=== PATIENT | male | born 1995 | race African-American/Black ===

== ENCOUNTER 2016-12-02 18:05 | Emergency (ER) | payer OTHER ==
[~2016-12-02] VITALS: Ht 180.3 cm; Wt 113.5 kg
[2016-12-02 18:08] VITALS: Ht 180.3 cm; Wt 113.5 kg
[2016-12-02] MEDS ORDERED: HYDROCODONE/APAP (5/325) TAB PO ONE (20:30)
[2016-12-02] MEDS ORDERED: IBUPROFEN 600 MG TAB PO ONE (20:30)
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
[2016-12-02] MEDS ORDERED: IBUP800T25 PO (21:02)
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
== END 2016-12-02 21:28 | disposition home or self-care (01) ==
LOC: FTE 18:05
DX: S60.221A Contusion of right hand, initial encounter (principal); S63.501A Unspecified sprain of right wrist, initial encounter; F17.210 Nicotine dependence, cigarettes, uncomplicated; Y04.0XXA Assault by unarmed brawl or fight, initial encounter
CPT/HCPCS: 29125; 73110; 73130; Z7502; Z7610